=== PATIENT | female | born 1950 | race Two or more races ===

== ENCOUNTER → 2020-10-22 | Day surgery (SDC) | payer OTHER ==
[~2020-10-22] MED LIST: [UNRECOGNIZED DRUG - OTHER] PO
== END | disposition home or self-care (01) ==
LOC: ADM 10-21 10:00 → CIR.AMB 06:07 → EDBD 06:07 → CIR.AMB 10:00
PROVIDERS: ATTEND Surgery
DX: D05.11 Intraductal carcinoma in situ of right breast (principal); I97.52 Accidental puncture and laceration of a circulatory system organ or structure during other procedure; C77.3 Secondary and unspecified malignant neoplasm of axilla and upper limb lymph nodes